=== PATIENT | female | born 1930 | race Caucasian/White ===

== ENCOUNTER → 2018-02-13 | Outpatient (CLI) | payer MEDICARE, BC | END | disposition home or self-care (01) | LOC: KCIC CT 10:41 | DX: M25.78 Osteophyte, vertebrae (principal); R91.8 Other nonspecific abnormal finding of lung field | CPT/HCPCS: 71250 ==

== ENCOUNTER 2018-12-16 20:25 | Emergency (ER) | payer MEDICARE ==
[~2018-12-16] VITALS: Ht 157.5 cm; Wt 95.3 kg
[2018-12-16 21:08] VITALS: BP 188/88
[2018-12-16] MEDS ORDERED: DIPHTH,PERTUSS(ACELL),TET TOX 0.5 ML DISP.SYRIN. VAX IM ONE (21:15)
[2018-12-16] MEDS ORDERED: HYDROcodone/APAP 5/325MG 1 TAB TABLET PO ONE (21:15)
--- NOTE | 2018-12-16 21:29 | PHYS DOC ---
Past Medical History Past Medical History: A-Fib, COPD, Hypertension Past Surgical History: Tonsillectomy Additional Past Surgical Histo: L AND R SHOULDER REPLACED, HERNIA REPAIR Alcohol Use: Occasionally Drug Use: None Adult General Chief Complaint Chief Complaint: LACERATION/AVULSION HPI HPI Patient is a 88 year old female who presents with was walking off of her porch when she tripped and fell landing on her right wrist and right arm. Patient states that she thinks she landed on the corner of the semen causing a laceration to the outer upper arm right above the elbow. Denies hitting her head or LOC. She is rating her pain at a 5 out of 10 states it is a stinging pain. Review of Systems Review of Systems Constitutional: Denies fever or chills [] Eyes: Denies change in visual acuity, redness, or eye pain [] HENT: Denies nasal congestion or sore throat [] Respiratory: Denies cough or shortness of breath [] Cardiovascular: No additional information not addressed in HPI [] GI: Denies abdominal pain, nausea, vomiting, bloody stools or diarrhea [] : Denies dysuria or hematuria [] Musculoskeletal: Denies back pain. Wrist joint pain [] Integument: Right upper arm laceration. Denies rash or skin lesions [] Neurologic: Denies headache, focal weakness or sensory changes [] All other systems were reviewed and found to be within normal limits, except as documented in this note. Current Medications Current Medications Current Medications Medications (Trade) Dose Ordered Sig/Geo Start Time Stop Time Status Last Admin Dose Admin Acetaminophen/ Hydrocodone Bitart (Lortab 5/325) 1 tab 1X ONCE 12/16/18 21:15 12/16/18 21:16 DC 12/16/18 21:21 1 TAB Diphtheria/ Tetanus/Acell Pertussis (Boostrix) 0.5 ml ONCE ONCE 12/16/18 21:15 12/16/18 21:16 DC 12/16/18 21:24 0.5 ML Lidocaine/ Epinephrine (LIDOCAINE 1%-EPI 1:100,000 Multi-Dose) 20 ml STK-MED ONCE 12/16/18 23:43 12/16/18 23:44 DC Lidocaine/Sodium Bicarbonate (Buffered Lidocaine 1%) 9 ml 1X ONCE 12/16/18 23:00 12/16/18 23:01 DC Allergies Allergies Allergies Coded Allergies Type Severity Reaction Last Updated Verified No Known Drug Allergies 12/16/18 No Physical Exam Physical Exam Constitutional: Well developed, well nourished, no acute distress, non-toxic appearance. [] HENT: Normocephalic, atraumatic, bilateral external ears normal, oropharynx moist, no oral exudates, nose normal. [] Eyes: PERRLA, EOMI, conjunctiva normal, no discharge. [] Neck: Normal range of motion, no tenderness, supple, no stridor. [] Cardiovascular:Heart rate regular rhythm, no murmur [] Lungs & Thorax: Bilateral breath sounds clear to auscultation [] Abdomen: Bowel sounds normal, soft, no tenderness, no masses, no pulsatile masses. [] Skin: Right upper arm laceration. Warm, dry, no erythema, no rash. [] Back: No tenderness, no CVA tenderness. [] Extremities: No tenderness, no cyanosis, no clubbing, ROM intact, no edema. [] Neurologic: Alert and oriented X 3, normal motor function, normal sensory function, no focal deficits noted. [] Psychologic: Affect normal, judgement normal, mood normal. [] Current Patient Data Vital Signs Vital Signs Date Time Temp Pulse Resp B/P (MAP) Pulse Ox O2 Delivery O2 Flow Rate FiO2 12/16/18 21:21 18 99 Room Air 12/16/18 21:08 97.6 93 188/88 (121) 97.6 EKG EKG [] Radiology/Procedures Radiology/Procedures [] Impressions: [facility] [address] [place], [place] [id number] IMAGING REPORT Signed PATIENT: ZEENAT WETZEL ACCOUNT: [id number] : 1930 LOCATION: ER AGE: 88 SEX: F EXAM STATUS: REG ER ORD. PHYSICIAN: KYLE PORTILLO APRN REASON: fall PROCEDURE: ELBOW RIGHT 3V Right humerus AP and lateral views, right elbow 3 views. HISTORY: Fall Right elbow 3 views were taken of the right elbow. There is air in the soft tissues from soft tissue injury. There is arthritis at the elbow with spurring on the radial head. Fat pads at the elbow are not displaced. Right humerus AP and lateral views of the right humerus show it joint prosthesis at the proximal humerus in good position. There is no dislocation at the shoulder. There is no humerus fracture. IMPRESSION: 1. Shoulder prosthesis in position. 2. No humerus fracture noted. 3. 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 4. Soft tissue injury posterior to the elbow. Electronically signed by: Yovanny Augustin MD (12/16/2018 10:26 PM) [id number] DICTATED and SIGNED BY: YOVANNY AUGUSTIN MD DATE: 12/16/182225 [facility] [address] [place] [address] IMAGING REPORT Signed PATIENT: ZEENAT WETZEL ACCOUNT: [id number] : 1930 LOCATION: ER AGE: 88 SEX: F EXAM STATUS: REG ER ORD. PHYSICIAN: KYLE PORTILLO APRN REASON: fall PROCEDURE: WRIST 3V RIGHT Right wrist 3 views. HISTORY: Fell off porch 3 views were taken of the right wrist. There is arthritis at the first carpometacarpal joint with joint space narrowing and spurring. There is no acute fracture. IMPRESSION: 1. Arthritis right wrist. 2. No acute fracture noted. Electronically signed by: Yovanny Augustin MD (12/16/2018 10:27 PM) [id number] DICTATED and SIGNED BY: YOVANNY AUGUSTIN MD DATE: 12/16/182226 Course & Med Decision Making Course & Med Decision Making Patient is a 88 year old female who presents with was walking off of her porch when she tripped and fell landing on her right wrist and right arm. Patient states that she thinks she landed on the corner of the semen causing a laceration to the outer upper arm right above the elbow. Denies hitting her head or LOC. She is rating her pain at a 5 out of 10 states it is a stinging pain. Alert and oriented. Speaks in full clear sentences. PERRLA. Neurologically intact. Patient has a 4 inch open laceration above the elbow joint but to the outer upper arm. There is no muscle or joint or ligamentous seen with examining the laceration. Edges are approximated but the laceration is gaping. Bleeding is controlled. Patient is on Coumadin for her A. fib. Patient can bend the elbow joint and there is no pain to palpation to the elbow or above the laceration or around the laceration. Patient also complains of right wrist pain. Range of motion in her right wrist is intact she can move all fingers without difficulty. Cap refill less than 3 seconds. Radial pulses strong and present. Patient is given a Union and a Boostrix shot in the ED. Patient to follow-up in the ED or with her primary care in 10 days for sutural removal. Patient to return sooner for signs of infection. Laceration Repair by me: Anesthesia: 1% lidocaine locally Location: Right upper arm Tendon/Joint/Nerves: No injury Foreign body: None detected after copious irrigation and exploration Technique: 20 Simple Interrupted Sutures Complexity: No subcutaneous sutures/mucosal repair/edge excision Post Closure Length: 4 inches Patient's bleeding was easily controlled in the department and there is no indication of anemia. No evidence of compartment syndrome, neurologic injury, vascular injury, open joint, tendon laceration, or foreign body. Patient is appropriate for outpatient follow up. 48 hour wound check. Scar minimization instructions given. Dragon Disclaimer Dragon Disclaimer This electronic medical record was generated, in whole or in part, using a voice recognition dictation system. Departure Departure Impression: Primary Impression: Wrist contusion Additional Impression: Laceration Disposition: 01 HOME, SELF-CARE Condition: STABLE Referrals: QUETA CURRAN MD (PCP) Patient Instructions: Contusion, Laceration Care, Adult Additional Instructions: Follow-up with primary care doctor if needed. Return in 10 days to get stitches removed or you can continue primary care. Watch for signs of infection. Scripts Hydrocodone/Apap 5-325 (NORCO 5-325 TABLET) 1 Each Tablet 1 TAB PO PRN Q6HRS PRN for PAIN, #6 TAB 0 Refills Prov: KYLE PORTILLO APRN 12/17/18 Problem Qualifiers Primary Impression: Wrist contusion Encounter type: initial encounter Laterality: right Qualified Codes: S60.211A - Contusion of right wrist, initial encounter KYLE PORTILLO APRN Dec 16, 2018 21:29
--- NOTE | 2018-12-16 22:29 | RAD ---
Right humerus AP and lateral views, right elbow 3 views. HISTORY: Fall Right elbow 3 views were taken of the right elbow. There is air in the soft tissues from soft tissue injury. There is arthritis at the elbow with spurring on the radial head. Fat pads at the elbow are not displaced. Right humerus AP and lateral views of the right humerus show it joint prosthesis at the proximal humerus in good position. There is no dislocation at the shoulder. There is no humerus fracture. IMPRESSION: 1. Shoulder prosthesis in position. 2. No humerus fracture noted. 3. 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 4. Soft tissue injury posterior to the elbow. Electronically signed by: Yovanny Augustin MD (12/16/2018 10:26 PM) [facility]
--- NOTE | 2018-12-16 22:30 | RAD ---
Right wrist 3 views. HISTORY: Fell off porch 3 views were taken of the right wrist. There is arthritis at the first carpometacarpal joint with joint space narrowing and spurring. There is no acute fracture. IMPRESSION: 1. Arthritis right wrist. 2. No acute fracture noted. Electronically signed by: Yovanny Augustin MD (12/16/2018 10:27 PM) [id number]
[2018-12-16] MEDS ORDERED: LIDOCAINE WITH 8.4% SOD BICARB 3 ML DISP.SYRIN. INJ ONE (23:00)
[2018-12-16] MEDS ORDERED: LIDOCAINE 1%/EPI 1:100,000 20 ML VIAL. ONE (23:43)
[2018-12-17] MEDS ORDERED: HYDR-3164 PO (00:01)
== END 2018-12-17 01:16 | disposition home or self-care (01) ==
LOC: ER 20:25
DX: S41.111A Laceration without foreign body of right upper arm, initial encounter (principal); S60.211A Contusion of right wrist, initial encounter; M19.021 Primary osteoarthritis, right elbow; I10 Essential (primary) hypertension; J44.9 Chronic obstructive pulmonary disease, unspecified; I48.91 Unspecified atrial fibrillation; W01.0XXA Fall on same level from slipping, tripping and stumbling without subsequent striking against object, initial encounter; Y93.89 Activity, other specified; Y92.89 Other specified places as the place of occurrence of the external cause; Y99.8 Other external cause status
CPT/HCPCS: 12004; 73060; 73080; 73110; 90471; 90715; 99283; 99284-25

== ENCOUNTER → 2019-02-08 | Outpatient (CLI) | payer MEDICARE ==
[~2019-02-08] MED LIST: HYDR-3164 PO
--- NOTE | 2019-02-08 17:38 | KCIC ---
CT study chest without contrast Clinical indications: Follow-up of lung nodules COMPARISON: February 13, 2018. TECHNIQUE: Noncontrast helical CT scanning of the chest was performed. Without contrast, the sensitivity to detect organ pathology is decreased. PQRS compliance Statement One or more of the following individualized dose reduction techniques were utilized for this study: 1. Automated exposure control 2. Adjustment of the mA and/or kV according to patient size 3. Use of iterative reconstruction technique FINDINGS: There is a 5 mm lung nodule within the anterior aspect right upper lobe seen on series 6 and image 79. This appears slightly more prominent than the previous study but this may be due to differences in slice thickness. On image 113, there is a noncalcified lung nodule within the anterior aspect of the right middle lobe measuring 4 mm. This was seen previously and has not changed significantly. There is atelectasis within the left lateral costophrenic angle. This has improved. No new lung nodule or lung infiltrate is seen. No pneumothorax or effusion is seen. The proximal bronchial tree is patent. No enlarged thoracic lymphadenopathy is evident. No focal aneurysmal dilatation of the thoracic aorta is seen. Calcified atheromatous disease of the coronary arteries is seen. The heart size is mildly enlarged. No pericardial effusion is seen. Small hiatal hernia is evident. No lytic process is seen. No adrenal mass is evident. IMPRESSION: Slight increase in size of right upper lobe lung nodule. Recommend continued chest CT follow-up in 12 months therefore as per Fleischner guidelines. Stable right middle lobe lung nodule. Calcified atheromatous disease of the coronary arteries. Mild cardiomegaly. Electronically signed by: Colt Longoria MD (02/08/2019 5:35 PM) [place] [id number]
== END | disposition home or self-care (01) ==
LOC: KCIC CT 08:21
PROVIDERS: ATTEND Family Medicine
DX: I11.9 Hypertensive heart disease without heart failure (principal); I25.10 Atherosclerotic heart disease of native coronary artery without angina pectoris; J98.11 Atelectasis; R91.8 Other nonspecific abnormal finding of lung field; K44.9 Diaphragmatic hernia without obstruction or gangrene; F17.200 Nicotine dependence, unspecified, uncomplicated
CPT/HCPCS: 71250

== ENCOUNTER → 2019-03-09 | Outpatient (CLI) | payer MEDICARE ==
--- NOTE | 2019-03-09 16:27 | RAD ---
CHEST PA LATERAL History: Chest pain. Dyspnea.. The heart size is mildly enlarged. No prior chest x-rays available for comparison. Atherosclerotic calcifications and ectasia of the aorta. No evidence of pneumothorax. No pleural effusion. Diffuse interstitial prominence of both lungs, may represent chronic fibrosis. Mild acute interstitial pneumonitis or edema difficult to exclude. No lobar consolidation. Bilateral shoulder replacements are identified. IMPRESSION: Mild interstitial prominence, likely chronic and fibrotic. Mild interstitial edema or infiltrate is possible. Electronically signed by: Nithin Cervantes MD (03/09/2019 4:24 PM) [facility]
--- NOTE | 2019-03-09 16:43 | RAD ---
EXAM: VENTILATION/PERFUSION SCINTIGRAPHY. HISTORY: Chest pain, dyspnea. Assess for pulmonary embolism. TECHNIQUE: 16 mCi Xe-[id number] was inhaled and ventilation images were obtained. 6.6 mCi Tc-99m MAA was injected intravenously and perfusion images were obtained in multiple projections. COMPARISON: Today's chest radiograph. FINDINGS: Ventilation images demonstrate mildly decreased ventilation in the left base. Perfusion images demonstrate no segmental defects. There is mildly heterogeneously decreased activity in the left base which may correspond with atelectasis or infiltrate on radiographs. IMPRESSION: 1. Low probability for pulmonary embolism. Electronically signed by: Migue Piedra MD (03/09/2019 4:40 PM) [facility]
== END | disposition home or self-care (01) ==
LOC: NM 09:40
PROVIDERS: ATTEND Internal Medicine Critical Care Medicine
DX: I25.10 Atherosclerotic heart disease of native coronary artery without angina pectoris (principal); R06.09 Other forms of dyspnea
CPT/HCPCS: 71046; 78582; 96374; A9540; A9558

== ENCOUNTER → 2019-08-17 | Outpatient (CLI) | payer MEDICARE ==
--- NOTE | 2019-08-17 13:16 | RAD ---
CT of the chest without contrast 08/17/2019 INDICATION: Lung nodule COMPARISON STUDY: CT of the chest without contrast February 08, 2019. TECHNIQUE: Multidetector CT imaging of the chest performed without contrast FINDINGS: Beam hardening artifact from bilateral shoulder arthroplasties limits evaluation of the thoracic inlet. Heart size is mild to moderately enlarged but stable. Dense coronary calcification is seen. Mitral valve calcification noted. No pathologically enlarged mediastinal adenopathy is identified. Scattered small mediastinal nodes are similar since comparison exam. Limited visualization of the upper abdomen demonstrates no acute changes. No pneumothorax, or pleural effusion is seen. No acute appearing focal consolidative infiltrate is identified. Mild dependent atelectasis is seen bilaterally. Mildly heterogenous pulmonary parenchyma is seen which may reflect air trapping. 5 mm subpleural nodule, right upper lobe is unchanged. 3 mm noncalcified nodule right middle lobe is unchanged. No acute osseous abnormalities are identified. IMPRESSION: Stable appearance of 2 small subcentimeter nodules in the right upper and middle lobes as described. Recommend CT surveillance to ensure two-year stability per Fleischner Society guidelines. CT DOSING PQRS STATEMENT: One or more of the following individualized dose reduction techniques were utilized for this examination: 1. Automated exposure control 2. Adjustment of the mA and/or kV according to patient size 3. Use of iterative reconstruction technique Electronically signed by: Rajesh Bullard MD (08/17/2019 1:13 PM) [facility]
== END | disposition home or self-care (01) ==
LOC: CT 09:10
PROVIDERS: ATTEND Internal Medicine Critical Care Medicine
DX: I34.8 Other nonrheumatic mitral valve disorders (principal); R91.8 Other nonspecific abnormal finding of lung field; J98.11 Atelectasis; I25.10 Atherosclerotic heart disease of native coronary artery without angina pectoris
CPT/HCPCS: 71250

== ENCOUNTER → 2021-08-25 | Outpatient (CLI) | payer MEDICARE ==
--- NOTE | 2021-08-25 08:47 | RAD ---
EXAM: ABDOMINAL ULTRASOUND. HISTORY: Right upper quadrant pain. COMPARISON: 08/17/2019. FINDINGS: Sonographic evaluation of the abdomen was performed. The liver appears normal in parenchymal echotexture. There are no focal lesions. The spleen measures 11.7 cm. Gallstones are noted. There is no pericholecystic fluid or wall thickening. There is no sonographic M urphy sign. The common duct measures 4 mm. A cystic mass at the head of the pancreas appears mostly s imple without a clear solid component. It measures 2.6 x 2.3 cm. The pancreatic duct does not appear dilated. The right kidney measures 9.5 cm. There is at least mild cortical thinning. There is no hydronephrosi s. The left kidney measures 11.0 cm. Cortical thickness and echogenicity are preserved. There is no h ydronephrosis. The visualized portions of the abdominal aorta and inferior vena cava are grossly patent and normal i n caliber. IMPRESSION: 1. 2.6 cm cystic mass at the head of the pancreas without a clear solid component. MRCP with and with out contrast is suggested for further characterization. 2. Cholelithiasis. Electronically signed by: Migue Piedra MD (08/25/2021 8:45 AM) [id number]
== END ==
LOC: US 08:17
PROVIDERS: ATTEND Internal Medicine Cardiovascular Disease
DX: K80.20 Calculus of gallbladder without cholecystitis without obstruction (principal); K86.2 Cyst of pancreas
CPT/HCPCS: 76700